=== PATIENT | male | born 1955 | race Caucasian/White ===

== ENCOUNTER 2023-12-02 19:42 | Inpatient (IN) | payer MEDICARE ==
[2023-12-02 20:27] LABS: HEMOGLOBIN 11.2 gm/dl (14.0-18.0); MEAN CORPUSCULAR HEMOGLOBIN 28.4 pg (28.0-32.0); MEAN CORPUSCULAR VOLUME 88.8 fl (83.0-99.0); MEAN PLATELET VOLUME 9.3 fl (9.4-12.4); PLATELET COUNT,PLT 226 K/mm3 (150-400); RED BLOOD CELL COUNT 3.94 M/mm3 (4.52-5.90); WHITE BLOOD CELL COUNT,WBC 22.39 K/mm3 (3.9-11.3)
[2023-12-02] MEDS: Lactated Ringers 1,000 ML IV ONE (20:38)
[2023-12-02] MEDS: Sodium Chloride 0.9% 10 ML Syringe FLUSH PRN (20:38)
[2023-12-02 20:44] LABS: INR 1.03; PROTHROMBIN TIME 10.9 SECONDS (9.7-12.0)
[2023-12-02 20:46] LABS: PTT,PARTIAL THROMBOPLSTIN TIME 25.8 SECONDS (21.7-31.4)
[2023-12-02 20:55] LABS: LACTIC ACID 2.6 mmol/L (0.4-2.0)
[2023-12-02] MEDS: LORazepam 2 MG/ML SDV IVPUSH ONE (20:55)
[2023-12-02] MEDS: Acetaminophen 325 MG Tab PO ONE (20:55)
[2023-12-02 20:56] LABS: BAND PERCENT MAN 1 % (0-10); BASOPHILS PERCENT MAN 0 (0.2-1.2); EOSINOPHILS PERCENT MAN 2 % (0.8-7.0); LYMPHOCYTES % ATYPICAL MANUAL 0 %; LYMPHOCYTES PERCENT MAN 6 % (20-40); MONOCYTES PERCENT MAN 6 % (2-10)
[2023-12-02 20:57] LABS: PLATELET COUNT ESTIMATE ADEQUATE
[2023-12-02 20:58] LABS: STOMATOCYTES FEW
[2023-12-02 21:00] LABS: A/G RATIO 0.7 (1-2); ALBUMIN 3.5 g/dl (3.4-5.0); ANION GAP 14.6 (5-15); BILIRUBIN TOTAL 0.6 mg/dL (0.2-1.0); BUN/CREATININE RATIO 16.3 (14-18); CALCIUM 8.8 mg/dL (8.5-10.1); CREATININE 1.9 mg/dL (0.7-1.3); EST CRCL DRUG DOSING (CG) 39.63 mL/min; MAGNESIUM 1.8 mg/dL (1.8-2.4); POTASSIUM,K 5.6 mEq/L (3.5-5.1); PROTEIN TOTAL,TP 8.5 g/dl (6.4-8.2); T4 FREE 0.75 ng/dL (0.76-1.46); TSH 1.303 uIU/mL (0.358-3.74)
[2023-12-02] MEDS ORDERED: Sodium Chloride 0.9% 500 ML IV SCH (21:45)
[2023-12-02] MEDS: Piperacillin/Tazobactam 4.5 GM in Sodium Chloride 0.9% 100 ML IV ONE (21:48)
[2023-12-02 22:20] LABS: CORONAVIRUS COVID-19 NAA NEGATIVE (NEGATIVE); INFLUENZA A NAA NEGATIVE (NEGATIVE); RESPIRATORY SYNCYTIAL VIR NAA NEGATIVE (NEGATIVE)
[2023-12-02] MEDS: fentaNYL 100 MCG/2 ML SDV IVPUSH ONE (23:03)
[2023-12-02] MEDS: VANCOmycin 1.5 GM/300 ML 300 ML IV SCH (23:32)
[2023-12-02 23:41] LABS: APPEARANCE,URINE SLT CLOUDY (Clear); BILIRUBIN,URINE NEGATIVE (Negative); COLOR,URINE YELLOW (Yellow); GLUCOSE,URINE TRACE (Negative); KETONES,URINE NEGATIVE (Negative); LEUKOCYTE ESTERASE,URINE NEGATIVE (Negative); NITRITE,URINE NEGATIVE (Negative); OCCULT BLOOD,URINE 3+ (Negative); PROTEIN,URINE 2+ (Negative); UROBILINOGEN,URINE 0.2 (0.2-1.0)
[2023-12-02 23:50] LABS: BACTERIA,URINE FEW /hpf (FEW); RBC,URINE 40-50 /hpf (0-5); SQUAMOUS EPITHELIAL CELLS,UR 0-5 /hpf (0-5); WBC,URINE 0-5 /hpf (0-5)
[2023-12-02 23:51] LABS: MUCUS,URINE FEW /hpf (FEW)
[2023-12-03] MEDS: Iopamidol 755 Mg/ML 100 ML Bottle IVPUSH ONE (00:21)
[2023-12-03] MEDS: Sodium Chloride 0.9% 100 ML IV SCH (00:21)
[2023-12-03] MEDS: Lactated Ringers 500 ML IV ONE ×2 (01:43→04:10)
[2023-12-03] MEDS: Sodium Chloride 0.9% 1,000 ML IV SCH (09:05)
[2023-12-03] MEDS: Acetaminophen 650 MG Supp RECTAL ONE (09:07)
[2023-12-03] MEDS ORDERED: Ondansetron 4 MG/2 ML SDV IV PRN (10:42)
[2023-12-03] MEDS ORDERED: 50% Dextrose in Water 50 ML Syringe IVPUSH PRN (10:57)
[2023-12-03 10:59] LABS: A/G RATIO 0.6 (1-2); ALBUMIN 2.9 g/dl (3.4-5.0); ANION GAP 13.5 (5-15); BILIRUBIN TOTAL 0.7 mg/dL (0.2-1.0); BUN/CREATININE RATIO 17.4 (14-18); CALCIUM 8.2 mg/dL (8.5-10.1); CREATININE 1.9 mg/dL (0.7-1.3); EST CRCL DRUG DOSING (CG) 39.63 mL/min; POTASSIUM,K 4.5 mEq/L (3.5-5.1); PROTEIN TOTAL,TP 7.4 g/dl (6.4-8.2); VANCOMYCIN RANDOM 12.9 ug/mL
[2023-12-03] MEDS: Sodium Chloride 0.9% 500 ML IV ONE ×2 (11:10→12:10)
[2023-12-03] MEDS: Cefepime 2 GM in Sodium Chloride 0.9% 50 ML IV SCH (11:20)
[2023-12-03] MEDS: LORazepam 2 MG/ML SDV IVPUSH ONE (11:28)
[2023-12-03] MEDS: Insulin Lispro 100 Unit/ML 3 ML KwikPen SUBCUT SCH (11:30)
[2023-12-03] MEDS: Iopamidol 612 MG/ML 100 ML Bottle IVPUSH ONE (12:10)
[2023-12-03] MEDS: HYDROmorphone 0.5 MG/0.5 ML Syringe IVPUSH PRN (21:08)
[2023-12-03] MEDS: VANCOmycin 1.25 GM/250 ML 1.25 GM in Premix Bag 1 BAG IV SCH (21:08)
[2023-12-04 05:30] LABS: BASOPHILS PERCENT AUTO 0.3 % (0.0-1.0); EOSINOPHILS ABSOLUTE AUTO 0.1 K/mm3 (0.0-0.4); EOSINOPHILS PERCENT AUTO 0.8 % (0.0-6.0); HEMATOCRIT 31.6 % (42.0-52.0); HEMOGLOBIN 10.1 gm/dl (14.0-18.0); IMMATURE GRAN ABSOLUTE AUTO 0.03 K/mm3 (0.00-0.05); IMMATURE GRAN PERCENT AUTO 0.3 % (0.0-0.4); LYMPHOCYTES ABSOLUTE AUTO 1.1 K/mm3 (1.0-4.8); LYMPHOCYTES PERCENT AUTO 10.4 % (24.0-44.0); MEAN CORPUSCULAR HEMOGLOBIN 28.2 pg (28.0-32.0); MEAN CORPUSCULAR VOLUME 88.3 fl (83.0-99.0); MEAN PLATELET VOLUME 9.5 fl (9.4-12.4); MONOCYTES ABSOLUTE AUTO 0.9 K/mm3 (0.0-0.8); MONOCYTES PERCENT AUTO 8.6 % (0.0-8.0); NEUTROPHILS ABSOLUTE AUTO 8.5 K/mm3 (1.8-7.7); NEUTROPHILS PERCENT AUTO 79.6 % (41.0-71.0); PLATELET COUNT,PLT 189 K/mm3 (150-400); RED BLOOD CELL COUNT 3.58 M/mm3 (4.52-5.90); WHITE BLOOD CELL COUNT,WBC 10.73 K/mm3 (3.9-11.3)
[2023-12-04 05:45] LABS: A/G RATIO 0.5 (1-2); ALBUMIN 2.5 g/dl (3.4-5.0); ANION GAP 14.6 (5-15); BILIRUBIN TOTAL 0.6 mg/dL (0.2-1.0); BUN/CREATININE RATIO 16.9 (14-18); C-REACTIVE PROTEIN 24.3 mg/dL (<0.30); CALCIUM 8.5 mg/dL (8.5-10.1); CREATININE 1.3 mg/dL (0.7-1.3); EST CRCL DRUG DOSING (CG) 57.92 mL/min; POTASSIUM,K 4.6 mEq/L (3.5-5.1); PROTEIN TOTAL,TP 7.2 g/dl (6.4-8.2)
[2023-12-04] MEDS: Enoxaparin 40 MG/0.4 ML Syringe SUBCUT SCH (08:12)
[2023-12-04] MEDS ORDERED: Cefepime 2 GM in Sodium Chloride 0.9% 50 ML IV SCH (08:30)
[2023-12-04] MEDS: Cefepime 2 GM in Sodium Chloride 0.9% 50 ML IV SCH (09:27)
[2023-12-04] MEDS: Furosemide 20 MG/2 ML VIAL IVPUSH ONE (12:15)
[2023-12-04] MEDS: Hydrochlorothiazide 25 MG Tab PO SCH (12:17)
[2023-12-04] MEDS: VANCOmycin 1.25 GM/250 ML 1.25 GM in Premix Bag 1 BAG IV SCH (14:01)
[2023-12-04] MEDS: Gabapentin 600 MG Tab PO SCH (14:04)
[2023-12-04] MEDS: oxyCODONE 5 MG Tab PO PRN (14:25)
[2023-12-04] MEDS: atorvaSTATin 40 MG Tab PO SCH (20:01)
[2023-12-04] MEDS: Famotidine 20 MG Tab PO SCH (20:01)
[2023-12-05 05:31] LABS: BASOPHILS PERCENT AUTO 0.6 % (0.0-1.0); EOSINOPHILS ABSOLUTE AUTO 0.2 K/mm3 (0.0-0.4); EOSINOPHILS PERCENT AUTO 2.8 % (0.0-6.0); HEMATOCRIT 33.3 % (42.0-52.0); HEMOGLOBIN 10.8 gm/dl (14.0-18.0); IMMATURE GRAN ABSOLUTE AUTO 0.05 K/mm3 (0.00-0.05); IMMATURE GRAN PERCENT AUTO 0.7 % (0.0-0.4); LYMPHOCYTES ABSOLUTE AUTO 1.3 K/mm3 (1.0-4.8); LYMPHOCYTES PERCENT AUTO 18.4 % (24.0-44.0); MEAN CORPUSCULAR HEMOGLOBIN 28.4 pg (28.0-32.0); MEAN CORPUSCULAR HGB CONC 32.4 g/dl (32.0-36.0); MEAN CORPUSCULAR VOLUME 87.6 fl (83.0-99.0); MEAN PLATELET VOLUME 9.7 fl (9.4-12.4); MONOCYTES PERCENT AUTO 14.3 % (0.0-8.0); NEUTROPHILS ABSOLUTE AUTO 4.3 K/mm3 (1.8-7.7); NEUTROPHILS PERCENT AUTO 63.2 % (41.0-71.0); PLATELET COUNT,PLT 228 K/mm3 (150-400); WHITE BLOOD CELL COUNT,WBC 6.78 K/mm3 (3.9-11.3)
[2023-12-05 05:53] LABS: A/G RATIO 0.5 (1-2); ALBUMIN 2.6 g/dl (3.4-5.0); ANION GAP 13.3 (5-15); BILIRUBIN TOTAL 0.6 mg/dL (0.2-1.0); BUN/CREATININE RATIO 15.8 (14-18); C-REACTIVE PROTEIN 18.46 mg/dL (<0.30); CALCIUM 9.1 mg/dL (8.5-10.1); CREATININE 1.2 mg/dL (0.7-1.3); EST CRCL DRUG DOSING (CG) 62.75 mL/min; POTASSIUM,K 4.3 mEq/L (3.5-5.1); PROTEIN TOTAL,TP 7.8 g/dl (6.4-8.2)
[2023-12-05] MEDS: Citalopram 20 MG Tab PO SCH (09:17)
[2023-12-05] MEDS: Verapamil 120 MG Cap.ER PO SCH (09:17)
[2023-12-05] MEDS: Lisinopril 20 MG Tab PO SCH (09:17)
[2023-12-05] MEDS: Hydrochlorothiazide 12.5 MG Cap PO SCH (09:17)
[2023-12-05] MEDS: Sodium Chloride 0.9% 10 ML Syringe FLUSH PRN (12:09)
[2023-12-05] MEDS: Gadobenate Dimeglumine 529 MG/ML 20 ML SDV IVPUSH ONE (12:09)
[2023-12-05] MEDS: Piperacillin/Tazobactam 4.5 GM in Sodium Chloride 0.9% 100 ML IV ONE (16:18)
[2023-12-05] MEDS: Oxybutynin 5 MG Tab.ER PO SCH (20:32)
[2023-12-05] MEDS ORDERED: Oxybutynin 5 MG Tab PO SCH (21:00)
[2023-12-05] MEDS: Piperacillin/Tazobactam 4.5 GM in Sodium Chloride 0.9% 100 ML IV SCH (22:41)
[2023-12-06 04:59] LABS: BASOPHILS PERCENT AUTO 0.5 % (0.0-1.0); EOSINOPHILS ABSOLUTE AUTO 0.2 K/mm3 (0.0-0.4); EOSINOPHILS PERCENT AUTO 2.9 % (0.0-6.0); HEMATOCRIT 34.1 % (42.0-52.0); HEMOGLOBIN 11.1 gm/dl (14.0-18.0); IMMATURE GRAN ABSOLUTE AUTO 0.05 K/mm3 (0.00-0.05); IMMATURE GRAN PERCENT AUTO 0.8 % (0.0-0.4); LYMPHOCYTES ABSOLUTE AUTO 1.9 K/mm3 (1.0-4.8); LYMPHOCYTES PERCENT AUTO 28.8 % (24.0-44.0); MEAN CORPUSCULAR HEMOGLOBIN 28.2 pg (28.0-32.0); MEAN CORPUSCULAR HGB CONC 32.6 g/dl (32.0-36.0); MEAN CORPUSCULAR VOLUME 86.5 fl (83.0-99.0); MEAN PLATELET VOLUME 9.4 fl (9.4-12.4); MONOCYTES ABSOLUTE AUTO 0.9 K/mm3 (0.0-0.8); MONOCYTES PERCENT AUTO 14.4 % (0.0-8.0); NEUTROPHILS ABSOLUTE AUTO 3.4 K/mm3 (1.8-7.7); NEUTROPHILS PERCENT AUTO 52.6 % (41.0-71.0); PLATELET COUNT,PLT 237 K/mm3 (150-400); RED BLOOD CELL COUNT 3.94 M/mm3 (4.52-5.90); WHITE BLOOD CELL COUNT,WBC 6.45 K/mm3 (3.9-11.3)
[2023-12-06 05:19] LABS: BUN/CREATININE RATIO 16.9 (14-18); C-REACTIVE PROTEIN 10.7 mg/dL (<0.30); CALCIUM 9.1 mg/dL (8.5-10.1); CREATININE 1.3 mg/dL (0.7-1.3); EST CRCL DRUG DOSING (CG) 57.92 mL/min
[2023-12-07 04:51] LABS: BASOPHILS ABSOLUTE AUTO 0.1 K/mm3 (0.0-0.2); BASOPHILS PERCENT AUTO 0.6 % (0.0-1.0); EOSINOPHILS ABSOLUTE AUTO 0.2 K/mm3 (0.0-0.4); EOSINOPHILS PERCENT AUTO 2.5 % (0.0-6.0); HEMATOCRIT 35.3 % (42.0-52.0); HEMOGLOBIN 11.5 gm/dl (14.0-18.0); IMMATURE GRAN ABSOLUTE AUTO 0.19 K/mm3 (0.00-0.05); IMMATURE GRAN PERCENT AUTO 2.3 % (0.0-0.4); LYMPHOCYTES ABSOLUTE AUTO 2.6 K/mm3 (1.0-4.8); LYMPHOCYTES PERCENT AUTO 30.9 % (24.0-44.0); MEAN CORPUSCULAR HEMOGLOBIN 28.1 pg (28.0-32.0); MEAN CORPUSCULAR HGB CONC 32.6 g/dl (32.0-36.0); MEAN CORPUSCULAR VOLUME 86.3 fl (83.0-99.0); MEAN PLATELET VOLUME 9.1 fl (9.4-12.4); MONOCYTES PERCENT AUTO 12.1 % (0.0-8.0); NEUTROPHILS ABSOLUTE AUTO 4.3 K/mm3 (1.8-7.7); NEUTROPHILS PERCENT AUTO 51.6 % (41.0-71.0); PLATELET COUNT,PLT 241 K/mm3 (150-400); RED BLOOD CELL COUNT 4.09 M/mm3 (4.52-5.90); WHITE BLOOD CELL COUNT,WBC 8.41 K/mm3 (3.9-11.3)
[2023-12-07 05:21] LABS: ANION GAP 13.3 (5-15); BUN/CREATININE RATIO 17.7 (14-18); C-REACTIVE PROTEIN 5.97 mg/dL (<0.30); CREATININE 1.3 mg/dL (0.7-1.3); EST CRCL DRUG DOSING (CG) 57.92 mL/min; MAGNESIUM 1.9 mg/dL (1.8-2.4); POTASSIUM,K 4.3 mEq/L (3.5-5.1)
[2023-12-07] MEDS: Piperacillin/Tazobactam 4.5 GM in Sodium Chloride 0.9% 100 ML IV SCH (05:54)
== END 2023-12-07 11:30 | disposition home or self-care (01) | DRG 871 ==
LOC: JD.ED 19:42 → JD.ICU 12-03 06:06
PROVIDERS: ADMIT Family Medicine; ATTEND Internal Medicine
PROC: 3E03329 Introduction of Other Anti-infective into Peripheral Vein, Percutaneous Approach (ICD-10-PCS; principal; 2023-12-02)
PROC: 5A09357 Assistance with Respiratory Ventilation, Less than 24 Consecutive Hours, Continuous Positive Airway Pressure (ICD-10-PCS; 2023-12-03)
PROC: 5A09357 Assistance with Respiratory Ventilation, Less than 24 Consecutive Hours, Continuous Positive Airway Pressure (ICD-10-PCS; 2023-12-05)
DX: A41.9 Sepsis, unspecified organism (principal); G92.8 Other toxic encephalopathy; R41.82 Altered mental status, unspecified; R79.89 Other specified abnormal findings of blood chemistry; E11.9 Type 2 diabetes mellitus without complications; J96.01 Acute respiratory failure with hypoxia; N17.9 Acute kidney failure, unspecified; L97.418 Non-pressure chronic ulcer of right heel and midfoot with other specified severity; M86.171 Other acute osteomyelitis, right ankle and foot; J98.11 Atelectasis; I25.10 Atherosclerotic heart disease of native coronary artery without angina pectoris; K21.9 Gastro-esophageal reflux disease without esophagitis; F41.9 Anxiety disorder, unspecified; F32.A Depression, unspecified; E11.621 Type 2 diabetes mellitus with foot ulcer; E87.5 Hyperkalemia; K57.30 Diverticulosis of large intestine without perforation or abscess without bleeding; R65.20 Severe sepsis without septic shock; E11.69 Type 2 diabetes mellitus with other specified complication; J44.9 Chronic obstructive pulmonary disease, unspecified; G47.33 Obstructive sleep apnea (adult) (pediatric); I10 Essential (primary) hypertension; E78.00 Pure hypercholesterolemia, unspecified; E11.42 Type 2 diabetes mellitus with diabetic polyneuropathy; Z95.1 Presence of aortocoronary bypass graft; Z79.84 Long term (current) use of oral hypoglycemic drugs; Z79.899 Other long term (current) drug therapy; Z86.718 Personal history of other venous thrombosis and embolism; Z89.421 Acquired absence of other right toe(s)
CPT/HCPCS: 0241U; 36415; 70450; 71045; 71260; 72125; 73552; 73630; 73701; 73720; 74177; 80048; 80053; 80202; 80307; 81001; 82140; 82550; 82947; 83605; 83690; 83735; 83880; 84439; 84443; 84484; 85007; 85025; 85027; 85610; 85730; 86140; 87040; 87641; 93005; 93971; 94660; 94667; 94668; 94761; 93010; 96361; 96365; 96366; 96367; 96375; 99223; 99232; 99239; 99285-25; 99291; 99292; A9270-GY; A9577; J0692; J1170; J1650; J1815; J1940; J2060; J2543; J3010; J3372; J3490; J7030; J7120; Q9967